=== PATIENT | female | born 1980 | race American Indian/Alaskan Native ===

== ENCOUNTER 2022-08-12 07:48 | Observation (INO) | payer BC, SELFPAY ==
--- NOTE | 2022-08-07 10:57 | Anesthesia Consultation ---
Anesthesia Consult and Med Hx Date of service: 08/12/22 - Airway Anesthetic Teeth Evaluation: Good (Some missing) ROM Head & Neck: Adequate Mental/Hyoid Distance: Adequate Mallampati Class: Class III Intubation Access Assessment: Possibly Difficult - Pre-Operative Health Status ASA Pre-Surgery Classification: ASA2 Proposed Anesthetic Plan: General Nerve Block: TAP if open case - Pulmonary Hx Smoking: No Hx Respiratory Symptoms: No (+2FS) Hx Sleep Apnea: No - Cardiovascular System Hx Hypertension: Yes (Dx 4 YEARS AGO) Hx Heart Attack/AMI: No Hx Pacemaker: No - Central Nervous System Hx Psychiatric Problems: No - Gastrointestinal Hx Gastroesophageal Reflux Disease: No - Hematic Hx Anemia: Yes Hx Sickle Cell Disease: No - Other Systems Hx Alcohol Use: No Hx Substance Use: No Hx Cancer: No Hx Obesity: Yes
[2022-08-07 11:06] LABS: Basophils % (Auto) 0.2 % (0.0-1.8); Eosinophils % (Auto) 0.4 % (0.0-4.3); Lymphocytes # (Auto) 2.2 K/mm3 (1.2-5.4); Lymphocytes % (Auto) 24.8 % (13.4-35.0); Mean Corpuscular HGB Conc 31 % (30-34); Mean Corpuscular Volume 77 fl (79-97); Monocytes # (Auto) 0.7 K/mm3 (0.0-0.8); Platelet Count 242 K/mm3 (140-440); Red Blood Count 5.23 M/mm3 (3.65-5.03); Red Cell Distribution Width 12.9 % (13.2-15.2)
[2022-08-07 11:24] LABS: Hematocrit 40.2 % (30.3-42.9); Hemoglobin 12.4 gm/dl (10.1-14.3)
[2022-08-07 12:02] LABS: BUN/Creatinine Ratio 18; Blood Urea Nitrogen 14 mg/dL (7-17); Calcium 10.4 mg/dL (8.4-10.2); Hemolysis Index 5
--- NOTE | 2022-08-11 14:43 | History and Physical Report ---
History of Present Illness Date of examination: 08/07/22 Date of admission: 08/12/22 Chief complaint: heavy bleeding; fibroids History of present illness: isit Type: Pre-Op CC: no complaints. History of Present Illness: Pt presents for Pre op. No c/o. ........... ..........................................................Jayshree Browne August 07, 2022 2:43 PM mask,Patient denies fever, cough, shortness of breath and exposure to COVID-19. Pt here for pre op for lavh with bs due to menorrhagia and dysmeorrhea. All risk/benefits/alternatives were d/w pt and questions were addressed and answered. Bleeding intially was controlled on ocps and pt d/c the ocps and intially had normal periods. Periods however have not increased in intensity and pt desires deifintity therapy with removal of the uterus. Several minutes spent speaking with pt regarding the procedure and the recovery and the importance of having clears post op pain goals and recovery. She expressed understanding. Consents were signed and placed on the chart. Pt did obtain medical clearance and it will be scanned into the chart prior to surgery. Vital Signs: Patient Profile: 42 Years Old Female Height: 62 inches (157.48 cm) Weight: 209 pounds BMI: 38.22 Temp: 97.7 degrees F BP sittin / 88 (left arm) Past History : 2 Term Births: 1 Premature Births: 1 Living Children: 2 Para: 2 Elect. Ab: 0 Spont. Ab: 0 # 1 Delivery date: 2004 Weeks Gestation: 35 labor: no Delivery type: Infant Sex: Male weight: 5-8 Comments: IOL for pre eclampsia # 2 Delivery date: 10/27/2012 Weeks Gestation: 39 Delivery type: Anesthesia type: Spinal Delivery location: [facility] Sex: male weight: 7.88 Comments: Hypertension Ultrasound [id number] scheduled C/S meconium fluid [employer] History Uterine Surgery (not C/S): negative Operations: Tubal Ligation Abnormal PAP: negative Infection History HIV Risk Eval: no TB exposure: no Personal hx. of genital herpes: no Partner hx. of genital herpes: no Hx of STD: none Active Medications (reviewed today): D3 () MULTI VITAMINS () BISOPROLOL, HCTZ 10MG, 6/25MG () LO LOESTRIN FE 1 MG-10 MCG / 10 MCG ORAL TABLET (NORETHIN-ETH ESTRAD-FE BIPHAS) 1 tab daily Current Allergies (reviewed today): No known allergies Past Medical History: Reviewed history from 03/24/2016 and no changes required: Hypertension bipolar disorder-no meds Past Surgical History: Reviewed history from 06/10/2017 and no changes required: Tubal Ligation Family History Summary: Reviewed history Last on 12/06/2020 and no changes required:08/11/2022 Mother - Has Family History of Diabetes - mother and 3 sisters and 3 brothers - Entered On: 06/10/2017 Mother - Has Family History of Hypertension - 14 children. 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: other (see H&P) Family/Genetic History: other (see H&P) Medications and Allergies Allergies Allergy/AdvReac Type Severity Reaction Status Date / Time No Known Allergies Allergy Verified 07/30/22 15:11 Home Medications Medication Instructions Recorded Confirmed Last Taken Type Bisoprolol/Hydrochlorothiazide 1 each PO QDAY 07/30/22 07/30/22 Unknown History [Bisoprolol-Hctz 10-6.25 mg Tab] Active Meds: Active Medications Acetaminophen (Acetaminophen 500 Mg Tab) 1,000 mg PO ONCE EDUARDA Stop: 08/12/22 23:00 Celecoxib (Celecoxib 200 Mg Cap) 400 mg PO PREOP NR Stop: 08/12/22 23:00 Fentanyl (Fentanyl 100 Mcg/2 Ml Inj) 100 mcg IV ONCE EDUARDA Stop: 08/12/22 23:00 Lactated Ringer's (Lactated Ringers) 1,000 mls @ 125 mls/hr IV DIRECT EDUARDA Magnesium Oxide (Magnesium Oxide 400 Mg Tab) 400 mg PO ONCE EDUARDA Stop: 08/12/22 23:00 Methocarbamol (Methocarbamol 750 Mg Tab) 1,500 mg PO ONCE EDUARDA Stop: 08/12/22 23:00 Midazolam HCl (Midazolam 2 Mg/2 Ml Inj) 2 mg IV PREOP NR Stop: 08/12/22 23:59 - Vital Signs Vital signs: Vital Signs Temp Pulse Resp BP Pulse Ox 98.7 F 65 16 138/89 99 08/07/22 10:10 08/07/22 10:10 08/07/22 10:10 08/07/22 10:10 08/07/22 10:10 Temp Pulse Resp BP Pulse Ox 98.7 F 65 16 138/89 99 08/07/22 10:10 08/07/22 10:10 08/07/22 10:10 08/07/22 10:10 08/07/22 10:10 - Physical Exam Cardiovascular: Normal S1, Normal S2 Lungs: Positive: Clear to auscultation, Normal air movement Abdomen: Positive: normal appearance, soft, normal bowel sounds. Negative: tenderness, guarding Genitourinary (Female): Positive: other (deferrered until EUA) Results Result Diagrams: 08/07/22 06:00 08/07/22 06:00 All other labs normal. Assessment and Plan - Patient Problems (1) Menorrhagia with regular cycle Status: Acute Plan to address problem: -desires definitive therapy with LAVH -consents signed and placed on the chart (2) Fibroid Status: Acute Plan to address problem: -desires definitive therapy with LAVH -consents signed and placed on the chart
[~2022-08-12 07:48] MED LIST: ACETAMINOPHEN 500 MG TAB PO SCH; CELECOXIB 200 MG CAP PO NR; LACTATED RINGERS 1,000 ML IV SCH; MAGNESIUM OXIDE 400 MG TAB PO SCH; MIDAZOLAM 2 MG/2 ML INJ IV NR; ceFAZolin/Water 2 GM/20 ML 2 GM/20 ML SYRINGE IV NR; fentaNYL 100 MCG/2 ML INJ IV SCH
[2022-08-12] MEDS ORDERED: ONDANSETRON 4 MG/2 ML INJ IV PRN (09:00)
[2022-08-12] MEDS ORDERED: oxyCODONE /ACETAMINOPHEN 5-325MG TAB PO PRN (09:00)
--- NOTE | 2022-08-12 09:02 | Anesthesia Day of Surgery ---
Anesthesia Day of Surgery - Day of Surgery Patient Examined: Yes Patient H&P Reviewed: Yes Patient is NPO: Yes
[2022-08-12] MEDS ORDERED: GENTAMICIN 0 MG in SODIUM CHLORIDE 0.9% 100 ML IV ONE (09:15)
[2022-08-12] MEDS ORDERED: BUPIVACAINE/PF (0.5%) 5 MG/1 ML 30 ML VIAL INFILTRATI ONE ×3 (09:58→12:10)
[2022-08-12] MEDS ORDERED: SODIUM CHLORIDE 0.9% 100 ML ONE (09:59)
[2022-08-12] MEDS ORDERED: VASOPRESSIN 20 UNIT/1 ML INJ ONE (09:59)
[2022-08-12] MEDS ORDERED: METHYLENE BLUE 50 MG/10 ML AMP ONE (09:59)
[2022-08-12] MEDS ORDERED: GENTAMICIN/NS 120MG/100ML 120 MG/100 ML BAG IV SCH (10:00)
[2022-08-12] MEDS ORDERED: ROCURONIUM 50 MG/5 ML INJ IV ONE (10:50)
[2022-08-12] MEDS ORDERED: HYDROmorphone 1 MG/1 ML INJ ONE (10:50)
[2022-08-12] MEDS ORDERED: LIDOCAINE MPF (2%) 20 MG/1 ML VIAL 5 ML ONE (10:50)
[2022-08-12] MEDS ORDERED: propofoL 200 MG/20 ML VIAL IV ONE (10:50)
[2022-08-12] MEDS ORDERED: dexAMETHasone 20 MG/5 ML VIAL ONE (11:22)
[2022-08-12] MEDS ORDERED: ANTICOAGULANT SOD CITRATE SOLUTION MC ONE (11:28)
[2022-08-12] MEDS ORDERED: ePHEDrine SULFATE 50 MG/1 ML INJ ONE (11:46)
[2022-08-12] MEDS ORDERED: SODIUM CHLORIDE 0.9% IRRIG SOLN 2000 ML IR ONE (12:10)
[2022-08-12] MEDS ORDERED: SODIUM CHLORIDE 0.9% 1000 ML IV SOLN IR ONE (12:10)
[2022-08-12] MEDS ORDERED: VASOPRESSIN 20 UNIT in SODIUM CHLORIDE 0.9% 100 ML INFILTRATI ONE (12:11)
[2022-08-12] MEDS ORDERED: SUGAMMADEX SODIUM 200 MG/2 ML VIAL IV ONE ×2 (12:49→13:04)
--- NOTE | 2022-08-12 14:16 | Operative Report ---
Operative Report Operative Report: Date of procedure: 08/12/2022 Pre-operative diagnosis: Menorrhagia Dysmenorrhea Uterine fibroid Post-operative diagnosis: Same Procedure name(s): Laparoscopic assisted vaginal hysterectomy Right salpingectomy Surgeon: Maria Luisa Flynn MD Clinical Radiologist: Dr. Canales Anesthesia: General endotracheal anesthesia EBL: 300 mL Urine output: 700 mL of clear urine out at end of procedure Cell Saver: 125 mL Fluids: 1200 mL Findings: Grossly normal right ovary grossly normal right fallopian tube approximately 50 cc of hemoperitoneum noted upon placement of the scope into the pelvis. There was not any obvious areas of bleeding noted upon all areas of entry into the abdomen to explain the hemoperitoneum. Seems to have been there prior to surgery. Approximately 8-week size uterus with an approximately 2 cm fibroid noted at the fundal surface. No left ovary or fallopian tube consistent with a history of left salpingooophorectomy Indications: Patient with menorrhagia dysmenorrhea and uterine fibroid desires definitive therapy. Patient desired removal of uterus. All risk benefits and alternatives were discussed with the patient consents were signed and placed on the chart. Procedure: Patient was taken to the operating room where she was placed under general endotracheal anesthesia. She was then prepped and draped in sterile fashion. It was at this point that the large V care uterine manipulator was placed inside of the uterus after the uterus was sounded to approximately 8cm. Ovalle catheter was also placed at this time. Attention was then turned to the umbilicus in which a supraumbilical incision was made. Under direct visualization the 5 mm trocar was placed inside the peritoneum the peritoneum was then insufflated. As at this point that the laparoscopic portion of the procedure was performed. 2 lateral 5 mm ports were also placed under direct visualization. Using the tripolar instrument the upper pedicles were cauterized and transected to the including round ligament with excellent hemostasis noted bilaterally. Attention was then turned vaginally. A weighted speculum was placed into the vagina and the cervix was grasped with a single-tooth tenaculum 2. The cervix was then injected circumferentially with Pitressin. The cervix was then circumferentially incised with the scalpel and the bladder dissected off of the pubovesical cervical fascia anteriorly with a sponge stick and Metzenbaum scissors. The same procedure was performed posteriorly and the posterior cul-de-sac was entered into sharply without difficulty. At this point a Riki Clamp was placed over the uterosacral ligaments on either side. These were then transected and suture ligated with 0 Vicryl. Hemostasis was assured. The cardinal ligaments were then clamped on both sides transected and suture ligated in similar fashion. The uterine arteries were then serially clamped with Riki clamps transected and suture ligated on both sides. Excellent hemostasis was visualized. After it was clear that the uterus had been completely from all pedicles the uterus was removed vaginally intact with cervix intact. The vaginal cuff angles were closed with figure of 8 stitches of 0 Vicryl on both sides. The peritoneum was incorporated in the stitching of the vaginal cuff. A series of interrupted figure of 8 sutures using 0 Vicryl were used to close the entire vaginal cuff. Excellent hemostasis was noted. The vagina was then irrigated copiously. Attention was then turned laparoscopically at which time. Again all pedicles were noted to be hemostatic. Surgicel was placed along the vaginal cuff incision. Good hemostasis was noted. All instruments were then removed from the abdomen and the vagina. All gas was released from the abdomen. The abdominal incisions were closed using 4-0 Monocryl. All of the abdominal incisions were injected with Marcaine without epi. Patient tolerated the procedure well sponge lap and needle counts were all correct 3 the patient was taken to the recovery room awake and in stable condition.
[2022-08-12] MEDS ORDERED: IBUPROFEN 800 MG TAB PO PRN (14:30)
[2022-08-12] MEDS ORDERED: ACETAMINOPHEN 325 MG TAB PO PRN (14:30)
[2022-08-12] MEDS ORDERED: MORPHINE 4 MG/1 ML INJ IV PRN (15:00)
[2022-08-12] MEDS ORDERED: MAGNESIUM HYDROXIDE (MOM) ORAL LIQD UDC PO PRN (15:00)
[2022-08-12] MEDS ORDERED: KETOROLAC 30 MG/1 ML INJ IV PRN (15:00)
[2022-08-12] MEDS ORDERED: HYDROcodone/ACETAMINOPHEN 5-325 MG TAB PO PRN (15:00)
[2022-08-12] MEDS: HYDROmorphone 0.5 MG/0.5 ML INJ IV PRN ×2 (15:04→17:57)
--- NOTE | 2022-08-12 16:15 | Post Anesthesia Evaluation ---
- Post Anesthesia Evaluation Patient Participated: Yes Airway Patent: Yes Stable Respiratory Function: Yes Nausea/Vomiting: No Temp > 96.8F: Yes Pain Manageable: Yes Adequeate Hydration: Yes Anesthesia Complications: No
[2022-08-12] MEDS: CLINDAMYCIN 600 MG/50 mL 600 MG/50 ML BAG IV SCH (18:12)
--- NOTE | 2022-08-12 18:47 | Progress Note ---
Assessment and Plan - Patient Problems (1) S/P laparoscopic assisted vaginal hysterectomy (LAVH) Current Visit: Yes Status: Acute Plan to address problem: Stable, continue clear liquids for now (2) Hypertension Current Visit: Yes Status: Acute Plan to address problem: She take Bisoprolol-HCTZ, will hold night since BP's stable Subjective - Subjective Date of service: 08/12/22 Principal diagnosis: DOS s/p LAVH Interval history: Resting in bed, vomited x1, however no nausea now, no complaints Patient reports: voiding normally Objective - Vital Signs Latest vital signs: Vital Signs Temp Pulse Resp BP BP Pulse Ox 08/12/22 17:40 97.7 F 96 H 20 127/63 100 08/12/22 15:30 97.7 F 75 17 147/82 147/82 100 08/12/22 15:15 71 16 146/78 08/12/22 15:00 76 14 139/87 08/12/22 14:45 81 15 146/88 08/12/22 14:43 86 13 141/75 08/12/22 14:38 81 14 151/84 08/12/22 14:33 97.3 F L 89 12 144/90 08/12/22 08:35 17 08/12/22 08:30 99.2 F 76 17 133/80 99 Intake and Output 08/12/22 08/12/22 08/12/22 06:59 14:59 22:59 Intake Total 540 Output Total 250 Balance 290 Intake: Oral 240 Intake, Free Water 300 Output: Urine 250 Indwelling Catheter 250 Other: Total, Intake Amount 240 Total, Output Amount 250 - Exam Cardiovascular: Present: Regular rate Lungs: Present: Clear to auscultation, Normal air movement Abdomen: Present: normal appearance, soft, normal bowel sounds. Absent: distention, tenderness, guarding Extremities: Present: other (SCDs (B) and functioning properly)
[2022-08-12] MEDS: GENTAMICIN/NS 80 MG/100 ML 100 ML IV SCH (21:03)
[2022-08-12] MEDS ORDERED: LACTATED RINGERS 1,000 ML IV SCH (21:15)
[2022-08-13] MEDS: CLINDAMYCIN 600 MG/50 mL 600 MG/50 ML BAG IV SCH (02:16)
[2022-08-13] MEDS: GENTAMICIN/NS 80 MG/100 ML 100 ML IV SCH (04:09)
[2022-08-13 08:27] LABS: Hematocrit 35.3 % (30.3-42.9); Hemoglobin 10.9 gm/dl (10.1-14.3)
--- NOTE | 2022-08-13 08:46 | Progress Note ---
Assessment and Plan - Patient Problems (1) Menorrhagia with regular cycle Current Visit: No Status: Acute (2) Fibroid Current Visit: No Status: Acute (3) S/P laparoscopic assisted vaginal hysterectomy (LAVH) Current Visit: Yes Status: Acute Plan to address problem: -DOING WELL -ROUTINE POST OP CARE -D/C THIS PM IF TOLERATES REGULAR DIET AND AFVSS Subjective - Subjective Date of service: 08/13/22 Principal diagnosis: POD#1 s/p LAVH Interval history: PT DOING WELL THIS AM. TOLERATING A REGULAR DIET THIS AM. STATES SHE IS FEELING GOOD AND READY TO GO HOME. NO DIZZINESS , SOB, CHEST PAIN OR PALPITATIONS AT THIS TIME. NO MORE EMESIS SINCE YESTERDAY PM WITH FIRST PO INTAKE. PT ADVISED WHEN TO CALL THE OFFICE UPON D/C INCLUDING BLEEDING LIKE A PERIOD, SOB, CHEST PAIN , FEVER OR OVERALL NOT FEELING WELL. SHE EXPRESSED UNDERSTANDING AND QUESTIONS WERE ADDRESSED AND ANSWERED. Patient reports: appetite normal, voiding normally, pain well controlled, flatus, ambulating normally, no dizzy ambulation Objective - Vital Signs Latest vital signs: Vital Signs Temp Pulse Resp Resp BP BP Pulse Ox 08/13/22 07:44 98.9 F 76 18 122/72 98 08/13/22 04:15 98.6 F 88 16 115/78 08/13/22 02:15 18 08/13/22 00:31 98.8 F 89 08/13/22 00:13 97.8 F 18 129/72 08/12/22 21:02 16 08/12/22 20:00 16 98 08/12/22 19:42 97.4 F L 80 18 135/82 100 08/12/22 18:45 89 20 125/73 97 08/12/22 17:40 97.7 F 96 H 20 127/63 100 08/12/22 15:30 97.7 F 75 17 147/82 147/82 100 08/12/22 15:15 71 16 146/78 100 08/12/22 15:00 76 14 139/87 100 08/12/22 14:45 81 15 146/88 100 08/12/22 14:43 86 13 141/75 100 08/12/22 14:38 81 14 151/84 100 08/12/22 14:33 97.3 F L 89 12 144/90 100 Intake and Output 08/12/22 08/13/22 08/13/22 22:59 06:59 14:59 Intake Total 810 200 Output Total 450 3700 Balance 360 -3500 Intake: IV 150 CLEOCIN 600 MG/50 mL 600 50 mg In 50 ml @ 100 mls/hr IV Q8H [facility] Rx#:[id number] Gentamicin/Ns 80 mg/100 100 ml 100 ml @ 200 mls/hr IV Q8H [facility] Rx#:[id number] Oral 360 Intake, Free Water 300 200 Output: Urine 450 3700 Indwelling Catheter 450 3400 Void 300 Other: Total, Intake Amount 120 Total, Output Amount 200 300 Voiding Method Indwelling Catheter - Exam Cardiovascular: Present: Normal S1, Normal S2 Lungs: Present: Clear to auscultation, Normal air movement Abdomen: Present: normal appearance, soft, normal bowel sounds. Absent: distention, tenderness, guarding Uterus: Present: other (ABSCENT) Extremities: Present: normal. Absent: tenderness, edema Deep Tendon Reflex Grade: Normal +2 Incision: Present: normal, dry, intact
--- NOTE | 2022-08-13 08:46 | Discharge Summary ---
Providers - Providers Date of Admission: 08/12/22 14:17 Date of discharge: 08/13/22 Attending physician: ROSIO CESAR Primary care physician: YEFRI JOYA Hospitalization Reason for admission: other (LAVH) Procedure: other (LAVH) Procedure details: SEE OP NOTES Incision: normal, dry, intact Hospital course: PT S/P LAVH. PT DOING WELL AND DESIRES D/C HOME TODAY. WILL D/C HOME TODAY IF REMAINS AFVSS. Condition at discharge: Good Disposition: 01 HOME / SELF CARE / HOMELESS - Discharge Diagnoses (1) Menorrhagia with regular cycle Status: Acute (2) Fibroid Status: Acute Plan - Discharge Medications Prescriptions: Docusate Sodium [Colace] 100 mg PO BID PRN #60 capsule PRN Reason: Constipation Ibuprofen [Motrin 800 MG tab] 800 mg PO Q8HR PRN #30 tablet PRN Reason: Pain, Moderate (4-6) oxyCODONE /ACETAMINOPHEN [Percocet 5/325] 1 tab PO Q4HR #30 tab - Provider Discharge Summary Activity: routine, no sex for 6 weeks, no heavy lifting 4 weeks Diet: routine Instructions: routine Additional instructions: [] Smoking cessation referral if applicable(refer to patient education folder for contact #) [] Refer to [facility] Booklet Call your doctor immediately for: * Fever > 100.5 * Heavy vaginal bleeding ( >1 pad per hour) * Severe persistent headache * Shortness of breath * Reddened, hot, painful area to leg or breast * Drainage or odor from incision. * Keep incision clean and dry at all times and follow doctor's instructions regarding bathing/showering KEEP POST OP APT NEXT WEEK WITH DR CESAR - Follow up plan Follow up: YEFRI JOYA MD [Primary Care Provider] - 7 Days
[2022-08-13 12:12] VITALS: BP 134/82
--- NOTE | 2022-08-13 12:34 | Post Anesthesia Evaluation ---
- Post Anesthesia Evaluation Patient Participated: Yes Airway Patent: Yes Stable Respiratory Function: Yes Nausea/Vomiting: No (not in the last 18 hours) Temp > 96.8F: Yes Pain Manageable: Yes Adequeate Hydration: Yes Anesthesia Complications: No Block Receding Appropriately: Not Applicable Patient on Ventilator: No
== END 2022-08-13 14:45 | disposition home or self-care (01) ==
LOC: OR 07:48 → OB 14:17
PROVIDERS: ADMIT Obstetrics & Gynecology; ATTEND Obstetrics & Gynecology
DX: N92.0 Excessive and frequent menstruation with regular cycle (principal); Z20.822 Contact with and (suspected) exposure to COVID-19; I10 Essential (primary) hypertension; D25.1 Intramural leiomyoma of uterus; Z98.51 Tubal ligation status; Z98.891 History of uterine scar from previous surgery
CPT/HCPCS: 36415; 58552; 80048; 84703; 85014; 85018; 85025; 86850; 86900; 86901; 88302; 88307; 96365; 96366; 96367; 96375; G0378; J1100; J1170; J1580; J1885; J2250; J2270; J2704; J3490; J7030; J7120; J7502; U0003; J3010; Q9968